=== PATIENT | female | born 1965 | race African-American/Black ===

== ENCOUNTER 2018-07-01 20:44 | Emergency (ER) | payer MEDICAID ==
[~2018-07-01] VITALS: Ht 167.6 cm; Wt 91.2 kg
[2018-07-02] MEDS ORDERED: PREDNISONE 20MG TABLET PO STA (01:53)
[2018-07-02] MEDS ORDERED: ALBUTEROL (0.083%) 2.5MG/3ML NEB HHN STA (01:53)
[2018-07-02] MEDS ORDERED: IPRATROPIUM BROMIDE (0.02%) 0.5MG/2.5ML NEB HHN STA (01:53)
[2018-07-02] MEDS ORDERED: KETOROLAC 60MG/2ML VIAL IM ONE (02:00)
[2018-07-02 03:27] LABS: CLARITY URINE CLEAR (CLEAR); COLOR URINE YELLOW (YELLOW); KETONES URINE NEGATIVE (NEGATIVE); LEUKOCYTE ESTERASE URINE NEGATIVE (NEGATIVE); NITRITE URINE NEGATIVE (NEGATIVE); OCCULT BLOOD URINE NEGATIVE (NEGATIVE); PROTEIN URINE NEGATIVE (NEGATIVE); SPECIFIC GRAVITY URINE 1.016 (1.005-1.030); UROBILINOGEN URINE 0.2 E.U./dL (0.2-1.0)
[2018-07-02 05:37] VITALS: BP 131/76
== END 2018-07-02 06:00 | disposition home or self-care (01) ==
LOC: ER 20:44
DX: D25.9 Leiomyoma of uterus, unspecified (principal); J45.901 Unspecified asthma with (acute) exacerbation; I10 Essential (primary) hypertension; Z87.442 Personal history of urinary calculi; Z98.890 Other specified postprocedural states
CPT/HCPCS: 81003; 81025; 96372; 99283; J1885; J7512; J7611; Z7610

== ENCOUNTER 2019-08-03 04:00 | Inpatient (IN) | payer MEDICAID ==
[~2019-08-03] VITALS: Ht 167.6 cm; Wt 88.0 kg
[2019-08-03] MEDS ORDERED: MORPHINE SULFATE 4 MG/ML CPJ (NOT FOR IM USE) IV STA (05:12)
[2019-08-03] MEDS ORDERED: ONDANSETRON HCL 4MG/2ML INJ IV STA (05:12)
[2019-08-03] MEDS ORDERED: SODIUM CHLORIDE 0.9% 1,000 ML IV ONE (05:12)
[2019-08-03 05:35] LABS: BASOPHILS % 0.7 % (0.0-2.0); EOSINOPHILS % 2.3 % (0.0-5.0); HEMOGLOBIN. 12.5 g/dL (12.0-16.0); LYMPHOCYTES % 36.9 % (20.0-50.0); MEAN CORPUSCULAR HEMOGLOBIN 25.9 pg (28.0-32.0); MEAN CORPUSCULAR VOLUME 79.1 fL (81.0-99.0); MEAN PLATELET VOLUME 7.7 fl (7.4-10.4); MONOCYTES % 7.7 % (2.0-8.0); NEUTROPHILS % 52.4 % (40.0-76.0); PLATELET 262 x1000/uL (130-400); RED CELL DISTRIBUTION WIDTH 16.1 % (11.6-14.6)
[2019-08-03 05:38] LABS: PROTHROMBIN TIME 10.6 sec (9.6-11.0)
[2019-08-03 05:39] LABS: CHLORIDE 106 mEq/L (98-107)
[2019-08-03] MEDS ORDERED: ENOXAPARIN 100MG/ML SYR SUBCUT ONE (07:00)
[2019-08-03] MEDS ORDERED: IOHEXOL-350 100 ML BOTTLE ONE (07:09)
[2019-08-03 10:00] VITALS: BP 130/85
[2019-08-03] MEDS ORDERED: ONDANSETRON HCL 4MG/2ML INJ IV PRN (10:15)
[2019-08-03] MEDS ORDERED: CLONIDINE 0.1MG TABLET PO PRN (10:15)
[2019-08-03] MEDS ORDERED: IPRATROPIUM/ALBUTEROL 0.5-3(2.5)MG/3ML NEB HHN PRN (10:15)
[2019-08-03] MEDS ORDERED: DIPHENHYDRAMINE 50MG/ML VIAL IV PRN (10:15)
[2019-08-03 12:00] VITALS: BP 112/54
[2019-08-03 16:00] VITALS: BP 137/87
[2019-08-03 20:47] VITALS: BP 141/88
[2019-08-03] MEDS: ENOXAPARIN 100MG/ML SYR SUBCUT SCH (21:05)
[2019-08-04] VITALS: BP 118/70
[2019-08-04 04:00] VITALS: BP 113/72
[2019-08-04 06:13] LABS: BASOPHILS % 0.7 % (0.0-2.0); EOSINOPHILS % 2.8 % (0.0-5.0); HEMATOCRIT. 38.8 % (36.0-48.0); HEMOGLOBIN. 12.6 g/dL (12.0-16.0); LYMPHOCYTES % 46.1 % (20.0-50.0); MEAN CORPUSCULAR HEMOGLOBIN 25.7 pg (28.0-32.0); MEAN CORPUSCULAR VOLUME 79.2 fL (81.0-99.0); MEAN PLATELET VOLUME 8.1 fl (7.4-10.4); MONOCYTES % 9.1 % (2.0-8.0); NEUTROPHILS % 41.3 % (40.0-76.0); PLATELET 265 x1000/uL (130-400); RED BLOOD CELL COUNT 4.91 mill/uL (4.2-5.4); RED CELL DISTRIBUTION WIDTH 15.9 % (11.6-14.6)
[2019-08-04 06:37] LABS: CHLORIDE 106 mEq/L (98-107)
[2019-08-04 06:59] LABS: LDL CHOLESTEROL 72 mg/dL (5-100)
[2019-08-04 07:00] LABS: HDL CHOLESTEROL 30 mg/dL (40-59)
[2019-08-04 08:00] VITALS: BP 150/90
[2019-08-04] MEDS: ENOXAPARIN 100MG/ML SYR SUBCUT SCH (09:00)
[2019-08-04] MEDS ORDERED: APIX5TAB MT (11:32)
[2019-08-04 12:00] VITALS: BP 131/89
== END 2019-08-04 15:26 | disposition home or self-care (01) | DRG 134 ==
LOC: ER 04:00 → 7WST 08:26 → EDBEDREQ 08:29 → ENRESERV 08:51
PROVIDERS: ADMIT Internal Medicine; ATTEND Internal Medicine
DX: I26.99 Other pulmonary embolism without acute cor pulmonale (principal); D64.9 Anemia, unspecified; I10 Essential (primary) hypertension; Z79.01 Long term (current) use of anticoagulants; Z90.710 Acquired absence of both cervix and uterus; Z98.891 History of uterine scar from previous surgery; Z87.442 Personal history of urinary calculi; Z91.14 Patient's other noncompliance with medication regimen
CPT/HCPCS: 36415; 71045; 71275; 80053; 80061; 83880; 84443; 84484; 85025; 93005; 93970; 99285; J1650; J2270; J2405; J7030; Q9967

== ENCOUNTER 2021-10-20 20:37 | Emergency (ER) | payer MEDICAID ==
[~2021-10-20 20:37] MED LIST: APIX5TAB MT
[2021-10-21] MEDS ORDERED: BO1 TP (00:58)
[2021-10-21] MEDS ORDERED: T3 PO (00:58)
== END 2021-10-20 21:42 | disposition left against medical advice (07) ==
LOC: ER 20:37
DX: Z53.21 Procedure and treatment not carried out due to patient leaving prior to being seen by health care provider (principal)

== ENCOUNTER 2021-10-20 21:52 | Emergency (ER) | payer MEDICAID ==
[~2021-10-20] VITALS: Ht 167.6 cm; Wt 91.0 kg
[2021-10-20] MEDS ORDERED: LIDOCAINE HCL/PF 1% 10 MG/ML 5ML VIAL INFIL ONE (23:30)
[2021-10-20] MEDS ORDERED: TETANUS, DIPHTHERIA, PERTUSSIS VAC/PF 0.5ML (>10YR OLD) IM ONE (23:30)
[2021-10-20] MEDS ORDERED: ACETAMINOPHEN 500MG TABLET PO ONE (23:30)
[2021-10-20] MEDS ORDERED: BACITRACIN ZINC OINT UDPKT TOP ONE (23:30)
[2021-10-21 00:30] VITALS: BP 173/104
[2021-10-21] MEDS ORDERED: HYDROCODONE/ACETAMINOPHEN 5/325MG TABLET PO ONE (00:30)
[2021-10-21] MEDS ORDERED: T3 PO (00:58)
[2021-10-21] MEDS ORDERED: BO1 TP (00:58)
== END 2021-10-21 04:20 | disposition home or self-care (01) ==
LOC: ER 21:52
DX: S81.812A Laceration without foreign body, left lower leg, initial encounter (principal); I10 Essential (primary) hypertension; Z86.711 Personal history of pulmonary embolism; Z90.710 Acquired absence of both cervix and uterus; Z87.442 Personal history of urinary calculi; Z79.01 Long term (current) use of anticoagulants; Z98.890 Other specified postprocedural states; Z88.5 Allergy status to narcotic agent; Z88.4 Allergy status to anesthetic agent; Y93.89 Activity, other specified; W25.XXXA Contact with sharp glass, initial encounter; Y92.018 Other place in single-family (private) house as the place of occurrence of the external cause
CPT/HCPCS: 12002; 90471; 90715; 99284; J3490

== ENCOUNTER 2021-10-25 15:04 | Emergency (ER) | payer MEDICAID ==
[~2021-10-25] VITALS: Ht 167.6 cm; Wt 91.0 kg
[~2021-10-25 15:04] MED LIST changes: +BO1 TP; +T3 PO
[2021-10-25 15:17] VITALS: BP 171/87
== END 2021-10-25 16:24 | disposition home or self-care (01) ==
LOC: ER 15:04
DX: Z48.00 Encounter for change or removal of nonsurgical wound dressing (principal); I10 Essential (primary) hypertension; J45.909 Unspecified asthma, uncomplicated
CPT/HCPCS: 99281

== ENCOUNTER 2022-10-22 02:31 | Emergency (ER) | payer MEDICARE, MEDICAID ==
[~2022-10-22] VITALS: Ht 167.6 cm; Wt 90.0 kg
[2022-10-22 02:45] VITALS: BP 143/98
[2022-10-22 03:15] LABS: BASOPHILS % 0.3 % (0.0-2.0); EOSINOPHILS % 1.1 % (0.0-5.0); HEMATOCRIT. 43.1 % (36.0-48.0); HEMOGLOBIN. 14.8 g/dL (12.0-16.0); LYMPHOCYTES % 22.4 % (20.0-50.0); MEAN CORPUSCULAR HEMOGLOBIN 29.2 pg (28.0-32.0); MEAN CORPUSCULAR VOLUME 85.2 fL (81.0-99.0); MEAN PLATELET VOLUME 7.4 fl (7.4-10.4); MONOCYTES % 7.7 % (2.0-8.0); NEUTROPHILS % 68.5 % (40.0-76.0); PLATELET 276 x1000/uL (130-400); RED BLOOD CELL COUNT 5.06 mill/uL (4.2-5.4); RED CELL DISTRIBUTION WIDTH 14.6 % (11.6-14.6)
[2022-10-22 03:21] LABS: CHLORIDE 107 mEq/L (98-107)
== END 2022-10-22 08:13 | disposition left against medical advice (07) ==
LOC: ER 02:31
DX: Z53.21 Procedure and treatment not carried out due to patient leaving prior to being seen by health care provider (principal); I49.9 Cardiac arrhythmia, unspecified
CPT/HCPCS: 36415; 80053; 85025; 93005; 99281